=== PATIENT | female | born 1970 | race Caucasian/White ===

== ENCOUNTER → 2019-09-30 | Outpatient (CLI) | payer OTHER | LOC: M SLEEP HO 09:31 | PROVIDERS: ATTEND Internal Medicine Cardiovascular Disease | DX: R06.83 Snoring (principal) ==

== ENCOUNTER → 2019-10-03 | Outpatient (CLI) | payer OTHER ==
--- NOTE | 2019-10-03 11:16 | REP ---
Hepatobiliary scan and gallbladder ejection fraction: History: Epigastric pain. Technique: 6.6 mCi of technetium-99m mebrofenin was injected and sequential anterior images are acquired. 65 minutes after the mebrofenin injection, the patient consumed 8 ounces Ensure and an additional 60 minutes of imaging was acquired. Regions of interest are plotted around the gallbladder. Findings: The initial hepatocellular parenchymal uptake phase is normal and homogeneous. Intra- and extra-hepatic bile ducts are labeled by the 10 -minute image. The gallbladder is first labeled on the 15 -minute image. There is normal washout from the liver parenchyma into the gallbladder and small intestine on subsequent images. The gallbladder ejection fraction is 13 %. Values greater than 35 % are considered normal with this technique. Impression: Normal hepatobiliary scan and low gallbladder ejection fraction. Electronically Signed by Clark Bonilla MD 10/03/2019 11:07 A
== END ==
LOC: M RAD 07:21
PROVIDERS: ATTEND Preventive Medicine Undersea and Hyperbaric Medicine
DX: R10.9 Unspecified abdominal pain (principal)

== ENCOUNTER → 2020-01-20 | Outpatient (CLI) | payer OTHER ==
[~2020-01-20] MED LIST: AMLO5TAB6 PO; BUSP5TA PO; DULO1CAP6 PO; MULTCAP PO; PRIL20TA2 PO; VALA500T5 PO; ZOLP5TAB PO
--- NOTE | 2020-01-20 10:55 | REP ---
REASON FOR EXAM: HIDA scan of 10/03/2019 with gallbladder ejection fraction calculation showed 13% gallbladder ejection fraction which is abnormally low. Patient complains of right upper quadrant pain. There are no prior gallbladder ultrasound examinations or right upper quadrant ultrasound examinations for comparison. Ultrasonographic evaluation of the gallbladder shows mild gallbladder wall thickening without pericholecystic edema or shadowing choleliths. There is an echogenic area seen along the inferior gallbladder wall which technologist could not delineate between bowel or an actual mass. I agree with the difficulty in delineating between those two on the images provided. The common bile duct measures 5 mm. The hepatic parenchymal echoes are within normal limits. There is no intrahepatic ductal dilatation. The pancreas and right kidney are normal. IMPRESSION: Findings involving the gallbladder as described above. Pre- and postcontrast enhanced abdominal CT is recommended with administration of oral bowel preparatory contrast prior to the exam. Electronically Signed by Umair Escobar DO 01/20/2020 02:45 P
== END ==
LOC: M RAD 09:04
PROVIDERS: ATTEND Internal Medicine Gastroenterology
DX: R10.9 Unspecified abdominal pain (principal)

== ENCOUNTER → 2020-01-21 | Outpatient (CLI) | payer OTHER | LOC: M LABSMTC 10:17 | PROVIDERS: ATTEND Anesthesiology | DX: Z01.818 Encounter for other preprocedural examination (principal); Z11.59 Encounter for screening for other viral diseases | CPT/HCPCS: C9803; U0003 ==

== ENCOUNTER 2020-01-24 13:15 | Day surgery (SDC) | payer OTHER ==
[~2020-01-24] VITALS: Ht 152.4 cm; Wt 79.4 kg
[~2020-01-24 13:15] MED LIST changes: +AMLO1TAB24 PO; -AMLO5TAB6 PO; +NS 1,000 ML IV ONE
[2020-01-24] MEDS ORDERED: propofoL 500 MG/50 ML VIAL As Ordered ONE (14:09)
[2020-01-24] MEDS ORDERED: LIDOCAINE 2% 100MG/5ML SDV (FOR ANES.) As Ordered ONE (14:09)
[2020-01-24] MEDS ORDERED: fentaNYL 100 MCG/2 ML INJECTION (J3010) As Ordered ONE (14:09)
--- NOTE | 2020-01-24 15:01 | ROOR ---
Patient Name: Michelle Dykes Procedure Date: 01/24/2020 2:04 PM Date of : 1970 Age: 49 Room: [facility] Gender: Female Note Status: Finalized Procedure: Upper GI endoscopy Indications: Dyspepsia Providers: Israel Starkey MD Referring MD: Krissy Denise NP Requesting Provider: Medicines: Monitored Anesthesia Care Complications: No immediate complications. Procedure: Pre-Anesthesia Assessment: - Prior to the procedure, a History and Physical was performed, and patient medications and allergies were reviewed. The patient is competent. The risks and benefits of the procedure and the sedation options and risks were discussed with the patient. All questions were answered and informed consent was obtained. Patient identification and proposed procedure were verified by the physician, the nurse and the anesthesiologist in the procedure room. Mental Status Examination: alert and oriented. Airway Examination: normal oropharyngeal airway and neck mobility. Respiratory Examination: clear to auscultation. CV Examination: normal. Prophylactic Antibiotics: The patient does not require prophylactic antibiotics. Prior Anticoagulants: The patient has taken no previous anticoagulant or antiplatelet agents. ASA Grade Assessment: II - A patient with mild systemic disease. After reviewing the risks and benefits, the patient was deemed in satisfactory condition to undergo the procedure. The anesthesia plan was to use monitored anesthesia care (MAC). Immediately prior to administration of medications, the patient was re-assessed for adequacy to receive sedatives. The heart rate, respiratory rate, oxygen saturations, blood pressure, adequacy of pulmonary ventilation, and response to care were monitored throughout the procedure. The physical status of the patient was re-assessed after the procedure. The Endoscope was introduced through the mouth, and advanced to the second part of duodenum. The upper GI endoscopy was accomplished without difficulty. The patient tolerated the procedure well. Findings: The examined esophagus was normal. The Z-line was regular and was found 36 cm from the incisors. Scattered mild inflammation characterized by erythema and granularity was found in the gastric antrum. Biopsies were taken with a cold forceps for Helicobacter pylori testing. Verification of patient identification for the specimen was done by the physician and nurse using the patient's name, date and medical record number. Estimated blood loss was minimal. The duodenal bulb and second portion of the duodenum were normal. Biopsies for histology were taken with a cold forceps for evaluation of celiac disease. Impression: - Normal esophagus. - Z-line regular, 36 cm from the incisors. - Gastritis. Biopsied. - Normal duodenal bulb and second portion of the duodenum. Biopsied. Recommendation: - Patient has a contact number available for emergencies. The signs and symptoms of potential delayed complications were discussed with the patient. Return to normal activities tomorrow. Written discharge instructions were provided to the patient. - Resume previous diet. - Continue present medications. - Await pathology results. - Telephone GI clinic for pathology results in 2 weeks. - Return to primary care physician. Israel Starkey MD Israel Starkey MD 01/24/2020 3:01:10 PM Electronically signed by Israel Starkey MD Number of Addenda: 0 Note Initiated On: 01/24/2020 2:04 PM Estimated Blood Loss: Estimated blood loss was minimal.
--- NOTE | 2020-01-24 15:03 | ROOR ---
Patient Name: Michelle Dykes Procedure Date: 01/24/2020 2:06 PM Date of : 1970 Age: 49 Room: [facility] Gender: Female Note Status: Finalized Procedure: Colonoscopy Indications: Screening for colorectal malignant neoplasm Providers: Israel Starkey MD Referring MD: Krissy Denise NP Requesting Provider: Medicines: Monitored Anesthesia Care Complications: No immediate complications. Procedure: Pre-Anesthesia Assessment: - Prior to the procedure, a History and Physical was performed, and patient medications and allergies were reviewed. The patient is competent. The risks and benefits of the procedure and the sedation options and risks were discussed with the patient. All questions were answered and informed consent was obtained. Patient identification and proposed procedure were verified by the physician, the nurse and the anesthesiologist in the procedure room. Mental Status Examination: alert and oriented. Airway Examination: normal oropharyngeal airway and neck mobility. Respiratory Examination: clear to auscultation. CV Examination: normal. Prophylactic Antibiotics: The patient does not require prophylactic antibiotics. Prior Anticoagulants: The patient has taken no previous anticoagulant or antiplatelet agents. ASA Grade Assessment: II - A patient with mild systemic disease. After reviewing the risks and benefits, the patient was deemed in satisfactory condition to undergo the procedure. The anesthesia plan was to use monitored anesthesia care (MAC). Immediately prior to administration of medications, the patient was re-assessed for adequacy to receive sedatives. The heart rate, respiratory rate, oxygen saturations, blood pressure, adequacy of pulmonary ventilation, and response to care were monitored throughout the procedure. The physical status of the patient was re-assessed after the procedure. The Colonoscope was introduced through the anus and advanced to the terminal ileum, with identification of the appendiceal orifice and IC valve. The colonoscopy was performed without difficulty. The patient tolerated the procedure well. The quality of the bowel preparation was good. The terminal ileum, ileocecal valve, appendiceal orifice, and rectum were photographed. Scope insertion time was 2 minutes. Scope withdrawal time was 10 minutes. The total duration of the procedure was 12 minutes. Findings: The perianal and digital rectal examinations were normal. The terminal ileum appeared normal. Non-bleeding external and internal hemorrhoids were found during retroflexion. The hemorrhoids were medium-sized. Normal mucosa was found in the entire colon. Impression: - The examined portion of the ileum was normal. - Non-bleeding external and internal hemorrhoids. - Normal mucosa in the entire examined colon. - No specimens collected. Recommendation: - Patient has a contact number available for emergencies. The signs and symptoms of potential delayed complications were discussed with the patient. Return to normal activities tomorrow. Written discharge instructions were provided to the patient. - High fiber diet. - Continue present medications. - Repeat colonoscopy in 10 years for screening purposes. - Follow the recommendations as per the other procedure note. - Return to primary care physician. Israel Starkey MD Israel Starkey MD 01/24/2020 3:03:18 PM Electronically signed by Israel Starkey MD Number of Addenda: 0 Note Initiated On: 01/24/2020 2:06 PM Estimated Blood Loss: Estimated blood loss: none.
[2020-01-24 15:19] VITALS: BP 121/75
== END 2020-01-24 15:25 | disposition home or self-care (01) ==
LOC: M OPP 13:15
PROVIDERS: ATTEND Internal Medicine Gastroenterology
DX: Z12.11 Encounter for screening for malignant neoplasm of colon (principal); K64.8 Other hemorrhoids; K29.70 Gastritis, unspecified, without bleeding; K21.0 Gastro-esophageal reflux disease with esophagitis; R63.4 Abnormal weight loss; R13.10 Dysphagia, unspecified; G47.30 Sleep apnea, unspecified; I10 Essential (primary) hypertension; Z79.899 Other long term (current) drug therapy
CPT/HCPCS: 43239; 45378; 88305; J3010

== ENCOUNTER → 2020-04-27 | Outpatient (CLI) | payer OTHER ==
[~2020-04-27] MED LIST changes: +GASTROGRAFIN SOLUTION 30ML (Q9963) As Ordered ONE; +ISOVUE-370 76% 100ML VIAL As Ordered ONE; -NS 1,000 ML IV ONE
--- NOTE | 2020-05-03 09:52 | REP ---
HISTORY: Abnormal finding on diagnostic imaging of the liver. CT CONTRAST DOSE: 100 mL of intravenous Isovue-370 is administered. The precontrast portion of the study was inadvertently omitted. COMPARISON: Made with sonography right upper quadrant 01/20/2020. Hepatobiliary scan from 10/03/2019. The ultrasound showed gallbladder wall thickening with an echogenic area along the inferior margin of the gallbladder wall. CT FINDINGS: Preliminary digital buffer inflated pad radiograph is unremarkable. The lung bases are clear. There is no evidence of pleural effusion or upper abdominal ascites. The liver is normal in size and homogeneous in texture. A normal size homogeneous spleen is seen. No adrenal abnormality is observed. No abnormality is seen in the pancreas. The gallbladder shows minimal gallbladder wall thickening and a somewhat lobulated contour along its inferior wall, but no mass lesion is observed in the gallbladder, in its wall, or adjacent to the gallbladder fossa. No biliary ductal dilation is seen. The kidneys enhance symmetrically and are morphologically intact. No retroperitoneal mass or adenopathy is seen. A normal short segment appendix is seen. Small and large intestinal bowel loops are unremarkable. Urinary bladder is intact. Dual-phase post-contrast imaging shows no evidence of filling defect in the intrarenal collecting system on either side. The uterus appears to be surgically absent. IMPRESSION: Mild gallbladder wall thickening. No evidence of gallbladder mass or pericholecystic mass. Otherwise, no acute disease. MTDD
== END ==
LOC: M RAD 13:20
PROVIDERS: ATTEND Surgery
DX: R93.2 Abnormal findings on diagnostic imaging of liver and biliary tract (principal)
CPT/HCPCS: 74177; Q9963; Q9967

== ENCOUNTER → 2020-11-13 | Outpatient (REF) | payer OTHER ==
[~2020-11-13] MED LIST changes: -GASTROGRAFIN SOLUTION 30ML (Q9963) As Ordered ONE; -ISOVUE-370 76% 100ML VIAL As Ordered ONE
== END ==
LOC: M LAB REF 18:27
PROVIDERS: ATTEND Dermatology
DX: C44.602 Unspecified malignant neoplasm of skin of right upper limb, including shoulder (principal)